=== PATIENT | female | born 1970 | race Caucasian/White ===

== ENCOUNTER 2021-01-11 16:18 | Outpatient (CLI) | payer BC | END 2021-01-11 20:07 | disposition home or self-care (01) | LOC: SCA 16:18 | PROVIDERS: ATTEND Internal Medicine | DX: Z01.818 Encounter for other preprocedural examination (principal) | CPT/HCPCS: 93005 ==

== ENCOUNTER 2022-01-25 12:31 | Outpatient (CLI) | payer BC | END 2022-01-25 18:11 | disposition home or self-care (01) | LOC: SDS 12:31 → SLB 18:11 | PROVIDERS: ATTEND Internal Medicine | DX: R06.2 Wheezing (principal); R05.9 Cough, unspecified | CPT/HCPCS: 71046-TC ==